=== PATIENT | male | born 1985 | race Two or more races ===

== ENCOUNTER 2017-04-10 18:47 | Inpatient (IN) ==
[2017-04-10] MEDS ORDERED: ONDANSETRON 4 MG/2 ML VIAL IV STA (20:16)
[2017-04-10] MEDS ORDERED: PANTOPRAZOLE 40 MG VIAL IV STA (20:16)
[2017-04-10] MEDS ORDERED: MORPHINE 2 MG/1 ML SYRINGE IV STA ×2 (20:16→23:32)
[2017-04-10] MEDS ORDERED: SODIUM CHLORIDE 0.9% 1,000 ML IV STA (20:16)
[2017-04-10] MEDS ORDERED: PANTOPRAZOLE 40 MG VIAL IV ONE (20:23)
[2017-04-10] MEDS ORDERED: ONDANSETRON 4 MG/2 ML VIAL ONE (20:23)
[2017-04-10] MEDS ORDERED: MORPHINE 2 MG/1 ML SYRINGE ONE ×2 (20:24→23:38)
[2017-04-10 20:30] LABS: Basophils # 0.1 10*3/uL (0.0-0.2); Basophils % 0.7 % (0.0-0.8); Eosinophils # 0.5 10*3/uL (0.0-0.87); Eosinophils % 5.2 % (0.00-10.9); Hematocrit 42.8 VOL% (42.0-52.0); Hemoglobin 14.8 GM/DL (14.0-18.0); Immature Granulocytes % 0.5 %; Immature Granulocytes Absolute 0.04 #; Lymphocytes % 45.5 % (21.2-54.2); Mean Corpuscular HGB Conc 34.6 GM/DL (32-36); Mean Corpuscular Hemoglobin 29 PG (27-34); Mean Corpuscular Volume 84.3 FL (87-102); Monocytes # 0.6 10*3/uL (0.11-0.8); Monocytes % 6.7 % (1.7-12.7); Neutrophils # 3.7 10*3/uL (1.4-7.4); Neutrophils % 41.4 % (38.7-73.9); Platelet Count 264 T/CUMM (130-400); Red Blood Count 5.08 MC/CUMM (3.8-5.5); Red Cell Distribution Width 13.1 % (9.3-17.3); White Blood Count 8.8 T/CUMM (4-12)
[2017-04-10 20:51] LABS: Lactic Acid 0.4 MMOL/L (0.4-2.0)
[2017-04-10 21:01] LABS: Albumin 4.4 G/DL (3.4-5.0); Bilirubin,Total 0.4 MG/DL (0.2-1.0); Calcium 9.6 MG/DL (8.5-10.1); Osmolality,Calculated 274.5 MOS/KG (273-304); Potassium 4.1 MMOL/L (3.5-5.1); Total Protein 8.3 G/DL (6.4-8.3)
[2017-04-10 21:02] LABS: Apearance,Urine CLEAR (Clear); Bilirubin,Urine Negative (Negative); Blood, Urine Negative (Negative); Glucose,Urine (UA) Negative (Negative); Ketones,Urine Negative (Negative); Nitrite,Urine Negative (Negative); Protein,Urine Negative; RBC,Urine <1 /HPF (0-4); Urine Color Straw (Yellow); Urine Specific Gravity 1.005 (1.001-1.035); Urine Urobilinogen < 2.0 EU/DL (0.2-1.0); WBC,Urine <1 /HPF (0-6)
[2017-04-10] MEDS: MORPHINE 2 MG/1 ML SYRINGE IV PRN (21:16)
[2017-04-11] MEDS ORDERED: MORPHINE 2 MG/1 ML SYRINGE IV PRN ×2 (00:52→10:43)
[2017-04-11] MEDS ORDERED: SODIUM CHLORIDE 0.9% 1,000 ML IV SCH (00:52)
[2017-04-11] MEDS ORDERED: NICOTINE 21 MG/24 HR PATCH TRANSDERM PRN (00:52)
[2017-04-11] MEDS ORDERED: ONDANSETRON 4 MG/2 ML VIAL IV PRN (00:52)
[2017-04-11] MEDS: MORPHINE 2 MG/1 ML SYRINGE IV PRN ×2 (01:33→06:07)
[2017-04-11 06:41] LABS: Basophils # 0.1 10*3/uL (0.0-0.2); Basophils % 0.9 % (0.0-0.8); Eosinophils # 0.5 10*3/uL (0.0-0.87); Eosinophils % 5.6 % (0.00-10.9); Hematocrit 42.5 VOL% (42.0-52.0); Hemoglobin 14.6 GM/DL (14.0-18.0); Immature Granulocytes % 0.2 %; Immature Granulocytes Absolute 0.02 #; Lymphocytes # 3.1 10*3/uL (1.4-4.0); Lymphocytes % 37.4 % (21.2-54.2); Mean Corpuscular HGB Conc 34.4 GM/DL (32-36); Mean Corpuscular Hemoglobin 29 PG (27-34); Mean Corpuscular Volume 85.5 FL (87-102); Mean Platelet Volume 10.3 FL (9.6-12.0); Monocytes # 0.7 10*3/uL (0.11-0.8); Neutrophils # 3.9 10*3/uL (1.4-7.4); Neutrophils % 47.9 % (38.7-73.9); Platelet Count 277 T/CUMM (130-400); Red Blood Count 4.97 MC/CUMM (3.8-5.5); Red Cell Distribution Width 13.4 % (9.3-17.3); White Blood Count 8.2 T/CUMM (4-12)
[2017-04-11] MEDS ORDERED: PANTOPRAZOLE 40 MG VIAL IV SCH (09:00)
[2017-04-11 11:35] VITALS: BP 126/80
== END 2017-04-11 15:00 | disposition home or self-care (01) | DRG 392 ==
LOC: N.ED 18:47 → N.EDINP 23:30 → N.5E 04-11 00:43
PROVIDERS: ADMIT Hospitalist; ATTEND Hospitalist